=== PATIENT | male | born 2000 | race Caucasian/White ===

== ENCOUNTER 2025-02-07 23:27 | Emergency (ER) | payer OTHER ==
[~2025-02-07] VITALS: Ht 175.3 cm; Wt 72.7 kg
[2025-02-08] MEDS: LEVALBUTEROL 1.25 MG 0.5ML CONCENTRATE NEB NEB ONE (00:29)
[2025-02-08] MEDS: predniSONE 20 MG TAB PO ONE (00:42)
[2025-02-08 00:51] LABS: BASO # 0.0 10^3/uL (0.0-0.2); BASO % 0.4 % (0.0-1.0); EOS # 0.5 10^3/uL (0.0-0.5); EOS % 4.6 % (0.0-3.0); LYMPH # 1.3 10^3/uL (1.5-5.0); LYMPH % 13.3 % (24.0-44.0); MONO # 0.5 10^3/uL (0.0-0.8); MONO % 5.4 % (2.0-8.0); NEUTROPHILS # 7.7 10^3/uL (1.5-8.5); NEUTROPHILS % 75.9 % (36.0-66.0); PLATELET COUNT, AUTOMATED 193 10^3/uL (150-450)
[2025-02-08 01:25] LABS: CALCIUM LEVEL 9.7 MG/DL (8.5-10.1); CARBON DIOXIDE LEVEL 25 MMOL/L (20-31); CHLORIDE LEVEL 109 MMOL/L (98-107); CREATININE FOR GFR 0.98 MG/DL (0.70-1.30); GLOMERULAR FILTRATION RATE > 90.0 (>60); MAGNESIUM LEVEL 1.9 MG/DL (1.8-2.4); POTASSIUM SERUM 3.9 MMOL/L (3.5-5.1); SODIUM LEVEL 145 MMOL/L (136-145)
[2025-02-08 02:00] VITALS: BP 124/71; TEMP 98.2; O2SAT 98
[2025-02-08] MEDS ORDERED: PRED20TA PO (02:00)
== END 2025-02-08 02:13 | disposition home or self-care (01) ==
LOC: M ED 23:27
DX: J20.9 Acute bronchitis, unspecified (principal); J45.909 Unspecified asthma, uncomplicated; F41.9 Anxiety disorder, unspecified; Z88.8 Allergy status to other drugs, medicaments and biological substances; Z79.52 Long term (current) use of systemic steroids
CPT/HCPCS: 71046; 80048; 83735; 85025; 87486; 87581; 87633; 87798; 93005; 94640; 99284; J7512

== ENCOUNTER 2025-04-28 15:15 | Emergency (ER) | payer OTHER ==
[~2025-04-28] VITALS: Ht 175.3 cm; Wt 80.4 kg
[~2025-04-28 15:15] MED LIST: PRED20TA PO
[2025-04-28 16:34] VITALS: BP 131/79; TEMP 98.8; O2SAT 98
== END 2025-04-28 17:35 | disposition home or self-care (01) ==
LOC: M ED 15:15
DX: S09.90XA Unspecified injury of head, initial encounter (principal); Y92.9 Unspecified place or not applicable; Y93.9 Activity, unspecified; Y99.9 Unspecified external cause status; V49.40XA Driver injured in collision with unspecified motor vehicles in traffic accident, initial encounter; Z88.8 Allergy status to other drugs, medicaments and biological substances; Z79.52 Long term (current) use of systemic steroids